=== PATIENT | male | born 1945 | race Caucasian/White ===

== ENCOUNTER 2017-07-24 11:10 | Emergency (ER) | payer OTHER, BC ==
[~2017-07-24] VITALS: Ht 170.2 cm; Wt 82.1 kg
[~2017-07-24 11:10] MED LIST: ACETAMINOPHEN500 MG PO; ASPIR 8181 M1 PO; B COMPLETE1 EACH PO; FISH OIL 1,0001 EAC7 PO; FLAX SEED OIL1 EACH PO; METFORMIN HCL1000 MG PO; VITAMIN D32000 UNI1 PO
[2017-07-24 11:37] LABS: HEMATOCRIT 43.2 % (38.0-50.0); HEMOGLOBIN 14.2 G/DL (12.5-16.6); MCH 29.5 PG (29.0-34.0); MCHC 32.9 G/DL (30.0-36.0); MCV 89.6 FL (86-99); PLATELET COUNT 305 K/uL (156-360); RBC DIS.WIDTH-CV 15.3 % (11.8-14.6); RBC DIS.WIDTH-SD 50.4 % (39-53); RED BLOOD COUNT 4.82 M/uL (4.00-5.50); WHITE BLOOD COUNT 9.5 K/uL (4.1-10.2)
[2017-07-24 11:49] LABS: CHLORIDE 107 mEq/L (99-109); POTASSIUM 4.6 mEq/L (3.7-5.4); SODIUM 138 mEq/L (136-147)
[2017-07-24 11:50] LABS: GLUCOSE 173 mg/dL (70-99)
[2017-07-24 11:54] LABS: GFR ESTIMATE (CALCULATED) > 59 mL/min/ (58.99-99999)
[2017-07-24 11:55] LABS: UREA NITROGEN (BUN) 18 mg/dL (9-23)
[2017-07-24 12:00] LABS: TROP-I INTERPRETATION NEGATIVE; TROPONIN-I < 0.01 ng/mL (0.0-0.30)
[2017-07-24 15:16] LABS: TROP-I INTERPRETATION NEGATIVE; TROPONIN-I < 0.01 ng/mL (0.0-0.30)
[2017-07-24] MEDS ORDERED: VENTOLIN HFA18 GM IH (15:27)
[2017-07-24] MEDS ORDERED: ZITHROMAX Z-PA250 MG PO (15:27)
[2017-07-24 16:15] VITALS: BP 168/81
== END 2017-07-24 16:16 | disposition left against medical advice (07) ==
LOC: EME 11:10
PROVIDERS: Nurse Practitioner Family
DX: J20.9 Acute bronchitis, unspecified (principal); J45.909 Unspecified asthma, uncomplicated; I10 Essential (primary) hypertension; E11.9 Type 2 diabetes mellitus without complications; Z79.84 Long term (current) use of oral hypoglycemic drugs; Z79.82 Long term (current) use of aspirin
CPT/HCPCS: 71046; 71275; 80048; 84484; 85027; 93005; 99281; 99285